=== PATIENT | male | born 1955 | race Caucasian/White ===

== ENCOUNTER 2018-04-30 06:43 | Day surgery (SDC) | payer MEDICARE, MEDICAID ==
[~2018-04-30] VITALS: Ht 180.3 cm; Wt 134.5 kg
[2018-04-30] MEDS ORDERED: ALBUTEROL SULFATE 2.5 MG/0.5 ML NEB SOLUTION NEB ONE (06:44)
[2018-04-30] MEDS ORDERED: LIDOCAINE HCL 2% 30 ML JELLY TP ONE (06:44)
[2018-04-30] MEDS ORDERED: BENZOCAINE 20% 50 MCG/SPRAY 57 GM TP ONE (06:44)
[2018-04-30] MEDS ORDERED: SODIUM CHLORIDE 0.9% 1,000 ML IV ONE ×2 (06:58→07:00)
[2018-04-30] MEDS ORDERED: MIDAZOLAM HCL 2 MG/2 ML VIAL ONE (08:01)
[2018-04-30] MEDS ORDERED: FentaNYL CITRATE-PF 100 MCG/2 ML VIAL ONE (08:02)
[2018-04-30] MEDS ORDERED: FINA5TAB41 PO (08:06)
[2018-04-30] MEDS ORDERED: KDUR10 PO (08:06)
[2018-04-30] MEDS ORDERED: TAMS0.4C32 PO (08:06)
[2018-04-30] MEDS ORDERED: RANI150T7 PO (08:06)
[2018-04-30] MEDS ORDERED: ATOR40TA28 PO (08:06)
[2018-04-30] MEDS ORDERED: LEVO500 PO (08:06)
[2018-04-30] MEDS ORDERED: ASPI81 PO (08:06)
[2018-04-30] MEDS ORDERED: CARV6 PO (08:06)
[2018-04-30] MEDS ORDERED: LOSA50TA37 PO (08:06)
[2018-04-30] MEDS ORDERED: FURO40 PO (08:06)
[2018-04-30] MEDS ORDERED: DOXY100C PO (08:06)
[2018-04-30] MEDS ORDERED: MethylPREDNISolone SOD SUCC 125 MG/2 ML VIAL IVP ONE (09:30)
[2018-04-30] MEDS ORDERED: MethylPREDNISolone SOD SUCC 125 MG/2 ML VIAL ONE (10:06)
[2018-04-30] MEDS ORDERED: OXYGEN THERAPY IH SCH (20:00)
== END 2018-04-30 10:45 | disposition home or self-care (01) ==
LOC: SURGERY 06:43
PROVIDERS: ATTEND Internal Medicine Critical Care Medicine
DX: J38.4 Edema of larynx (principal); B37.0 Candidal stomatitis; J84.111 Idiopathic interstitial pneumonia, not otherwise specified; I11.9 Hypertensive heart disease without heart failure; Z79.2 Long term (current) use of antibiotics; Z86.74 Personal history of sudden cardiac arrest; Z79.82 Long term (current) use of aspirin; Z88.0 Allergy status to penicillin; Z72.89 Other problems related to lifestyle; Z98.890 Other specified postprocedural states; Z79.899 Other long term (current) drug therapy
CPT/HCPCS: 31623; 31624; 71045; 87015; 87070; 87205; 87206; 87220; 88108; 88312; 93005; J2250; J2930; J3010; J7030